=== PATIENT | male | born 1985 | race Caucasian/White ===

== ENCOUNTER 2020-10-18 09:30 | Emergency (ER) | payer SELFPAY ==
[~2020-10-18] VITALS: Ht 180.3 cm; Wt 77.1 kg
[2020-10-18] MEDS ORDERED: NAPROSYN500 MG PO (10:09)
[2020-10-18] MEDS ORDERED: CYCLOBENZAPRINE10 MG PO (10:09)
[2020-10-18] MEDS ORDERED: TYLENOL325 M1 PO (10:09)
== END 2020-10-18 10:21 | disposition home or self-care (01) ==
LOC: ED 09:30
DX: M54.41 Lumbago with sciatica, right side (principal); F17.200 Nicotine dependence, unspecified, uncomplicated